=== PATIENT | female | born 1960 | race Caucasian/White ===

== ENCOUNTER 2019-05-24 13:24 | Emergency (ER) | payer OTHER ==
[2019-05-24 14:02] VITALS: BMI 28.8
[2019-05-24 14:50] VITALS: PULSE 87; TEMP 98.2
[2019-05-24 15:20] VITALS: BP 185/85
[2019-05-24] MEDS ORDERED: METOCLOPRAMIDE HCL 10 MG TABLET (FP) PO ONE ×2 (15:27→15:47)
[2019-05-24] MEDS ORDERED: ACETAMINOPHEN 325 MG TABLET (FP) PO ONE (15:27)
[2019-05-24] MEDS ORDERED: ACETAMINOPHEN 325 MG TABLET (FP) ONE (15:47)
--- NOTE | 2019-05-24 15:55 | PDOC ---
History of Present Illness - General Chief Complaint: Blood Pressure Problem Stated Complaint: FALL Time Seen by Provider: 05/24/19 15:27 History Source: Patient Exam Limitations: No Limitations - History of Present Illness Initial Comments: 05/24/19 15:30 Patient is 59F with history of DM, HTN here today complaining of a headache. Patient states that she tripped over a wire yesterday, falling backwards and hit her head on a wall. Denies LOC. Takes aspirin at home. Patient states that her head hurts on the left side and is described as a burning. Denies neck pain, chest pain, back pain, abdominal pain, pelvic pain, leg pain. Denies fevers, chills, nausea, vomiting. Patient has been taking blood pressure multiple times at home. 150s-160s at home worse with pain. Endorses compliance with blood pressure medications at home. Past History - Past Medical History Allergies/Adverse Reactions: Allergies Allergy/AdvReac Type Severity Reaction Status Date / Time No Known Allergies Allergy Verified 05/24/19 13:56 Home Medications: Ambulatory Orders Dapagliflozin Propanediol [Farxiga] 10 mg PO DAILY 03/08/16 Metoprolol Succinate [Toprol XL -] 25 mg PO DAILY 03/08/16 Omeprazole 40 mg PO DAILY 03/08/16 Telmisartan/Hydrochlorothiazid [Micardis Hct 80-12.5 mg Tablet] 1 each PO DAILY 03/08/16 Aspirin 81 mg PO DAILY 05/24/19 Linagliptin [Tradjenta] 5 mg PO DAILY 05/24/19 Rosuvastatin [Crestor -] 5 mg PO HS 05/24/19 Asthma: No Cancer: No CVA: No COPD: No Diabetes: Yes (type 2) GI Disorders: Yes (GERD) HTN: Yes Seizures: Yes (none since 6 years old) - Psycho Social/Smoking Cessation Hx Smoking History: Unknown if ever smoked Hx Alcohol Use: No Drug/Substance Use Hx: No Review of Systems - Review of Systems Able to Perform ROS?: Yes Comments:: 05/24/19 15:55 GENERAL/CONSTITUTIONAL: No fever or chills. No weakness. HEAD, EYES, EARS, NOSE AND THROAT: No change in vision. No ear pain or discharge. No sore throat. CARDIOVASCULAR: No chest pain or shortness of breath RESPIRATORY: No cough, wheezing, or hemoptysis. GASTROINTESTINAL: No nausea, vomiting, diarrhea or constipation. GENITOURINARY: No dysuria, frequency, or change in urination. MUSCULOSKELETAL: No joint or muscle swelling or pain. No neck or back pain. SKIN: No rash NEUROLOGIC: +headache, no vertigo, loss of consciousness, or change in strength/sensation. ENDOCRINE: No increased thirst. No abnormal weight change HEMATOLOGIC/LYMPHATIC: No anemia, easy bleeding, or history of blood clots. ALLERGIC/IMMUNOLOGIC: No hives or skin allergy. *Physical Exam - Vital Signs Last Vital Signs Temp Pulse Resp BP Pulse Ox 98.2 F 87 18 185/85 H 97 05/24/19 14:45 05/24/19 14:45 05/24/19 14:45 05/24/19 15:00 05/24/19 14:45 - Physical Exam 05/24/19 15:55 GENERAL: Awake, alert, and fully oriented, in no acute distress HEAD: No signs of trauma, normocephalic, atraumatic EYES: PERRLA, EOMI, sclera anicteric, conjunctiva clear ENT: Auricles normal inspection, hearing grossly normal, nares patent, oropharynx clear without exudates. Moist mucosa NECK: Normal ROM, supple, no lymphadenopathy, JVD, or masses LUNGS: No distress, speaks full sentences, clear to auscultation bilaterally HEART: Regular rate and rhythm, normal S1 and S2, no murmurs, rubs or gallops, peripheral pulses normal and equal bilaterally. ABDOMEN: Soft, nontender, normoactive bowel sounds. No guarding, no rebound. No masses EXTREMITIES: Normal inspection, Normal range of motion, no edema. No clubbing or cyanosis. NEUROLOGICAL: Cranial nerves II through XII grossly intact. Normal speech, normal gait, no focal sensorimotor deficits, normal romberg SKIN: Warm, Dry, normal turgor, no rashes or lesions noted. ED Treatment Course - RADIOLOGY Radiology Studies Ordered: Category Date Time Status HEAD CT WITHOUT CONTRAST [CT] Stat CT Scan 05/24/19 15:28 Ordered Medical Decision Making - Medical Decision Making 05/24/19 15:56 Patient is 59F with history of HTN and DM here today with headache s/p fall. BP elevated, likely related to pain. Will evaluate with CT and treat for pain. Asp irin use means patient doesn't clinically clear. NEXUS clears neck. No signs of other trauma. Will treat headache with tylenol and reglan. Likely discharge. 05/24/19 16:45 BP down to systolic in 150s. Headache slightly improved. Will give motrin, discharge. Return precautions given. 05/24/19 16:49 EKG shows NSR with rate of 79. No st elevations/depressions. Normal axis. Normal intervals. No significant t wave abnormalities. Discharge - Discharge Information Problems reviewed: Yes Clinical Impression/Diagnosis: Closed head injury Condition: Good Disposition: HOME - Admission No - Follow up/Referral Referrals: Mateo Sol MD [Primary Care Provider] - - Patient Discharge Instructions Patient Printed Discharge Instructions: DI for Closed Head Injury Additional Instructions: Please take tylenol and motrin for pain as needed. Please return if you have any new, worsening or concerning symptoms, especially increasing headache, arm/leg weakness or increased confusion. - Post Discharge Activity
--- NOTE | 2019-05-24 16:08 | PDOC ---
Documentation entered by Anca Rose SCRIBE, acting as scribe for Rafi Alcantara MD. Rafi Alcantara MD: This documentation has been prepared by the Milton talavera Xhesika, SCRIBE, under my direction and personally reviewed by me in its entirety. I confirm that the documentation accurately reflects all work, treatment, procedures, and medical decision making performed by me. Attending Attestation - Resident Resident Name: Santiago Bar - ED Attending Attestation I have performed the following: I have examined & evaluated the patient, The case was reviewed & discussed with the resident, I agree w/resident's findings & plan, Exceptions are as noted - HPI HPI: 05/24/19 15:58 The patient is a 59 year old female with a significant PMH of DM and HTN who presents to the emergency department for L sided headache. Pt reports she tripped over a wire yesterday and fell, causing her to hit her head. The patient denies LOC. Patient notes she is on aspirin. The patient denies chest pain, shortness of breath, fever, chills, cough, nausea, vomiting, diarrhea and constipation. Allergies: NKDA - Physicial Exam PE: 05/24/19 16:06 Awake and alert, well-nourished, in no significant distress Normocephalic and atraumatic PERRLA, EOMI pelvis stable CTA RRR Pelvis stable No extremity deformity Gait stable - Medical Decision Making 05/24/19 16:07 59-year-old female with history of hypertension, on aspirin presents with closed head injury status post mechanical fall. Will obtain CT of head to rule out intracranial pathology. Blood pressure likely pain related. Will administer acetaminophen and Reglan. Likely discharge if no intracranial pathology identified
[2019-05-24] MEDS ORDERED: IBUPROFEN 600 MG TABLET (FP) PO ONE ×2 (16:50→16:55)
--- NOTE | 2019-05-25 10:28 | EKG ---
Test Reason : Blood Pressure : / mmHG Vent. Rate : 079 BPM Atrial Rate : 079 BPM P-R Int : 168 ms QRS Dur : 070 ms QT Int : 376 ms P-R-T Axes : 071 030 040 degrees QTc Int : 431 ms NORMAL SINUS RHYTHM POSSIBLE LEFT ATRIAL ENLARGEMENT BORDERLINE ECG WHEN COMPARED WITH ECG OF 04-JUN-2003 10:42, NONSPECIFIC T WAVE ABNORMALITY HAS REPLACED INVERTED T WAVES IN INFERIOR LEADS Confirmed by SONY DAMON, DOMINIC ([id number]) on 05/25/2019 10:27:46 AM Referred By: Confirmed By:DOMINIC CARDOZA MD
== END 2019-05-24 17:00 | disposition home or self-care (01) ==
LOC: JER 13:24
DX: S09.90XA Unspecified injury of head, initial encounter (principal); E11.9 Type 2 diabetes mellitus without complications; I10 Essential (primary) hypertension; R56.9 Unspecified convulsions
CPT/HCPCS: 70450-TC; 93005; 93010; 99284-25

== ENCOUNTER 2020-04-04 15:45 | Inpatient (IN) | payer OTHER ==
[2020-04-04 16:10] VITALS: TEMP 98.2; BMI 29.9
[2020-04-04] MEDS ORDERED: METOCLOPRAMIDE HCL INJECTION 10 MG/2 ML VIAL IVPUSH ONE (17:23)
[2020-04-04] MEDS ORDERED: ACETAMINOPHEN 500 MG TABLET (FP) PO ONE (17:23)
[2020-04-04] MEDS ORDERED: ACETAMINOPHEN 500 MG TABLET (FP) ONE (17:30)
[2020-04-04] MEDS ORDERED: METOCLOPRAMIDE HCL INJECTION 10 MG/2 ML VIAL ONE (17:30)
[2020-04-04 18:33] LABS: EOS % 0.1 % (0-4.5); HEMATOCRIT 29.7 % (32.4-45.2); HEMOGLOBIN 9.8 GM/dL (10.7-15.3); LYMPH % 5.8 % (8-40); MCH 29.1 pg (25.7-33.7); MCHC 32.9 g/dl (32.0-36.0); MEAN CELL VOLUME 88.4 fl (80-96); MONO % 1.1 % (3.8-10.2); RBC 3.36 M/mm3 (3.60-5.2); RDW 17.3 % (11.6-15.6)
[2020-04-04 18:46] LABS: PLATELET COUNT 35 K/MM3 (134-434)
[2020-04-04 18:48] LABS: POTASSIUM 3.8 mmol/L (3.5-5.1)
[2020-04-04 18:50] LABS: INR 1.14 (0.83-1.09); PROTHROMBIN TIME (PATIENT) 13.7 SEC (9.7-13.0)
[2020-04-04 18:53] LABS: ACTIVATED PTT 28.4 SECONDS (25.2-36.5)
[2020-04-04 18:54] LABS: BLOOD UREA NITROGEN 15.8 mg/dL (7-18); CALCIUM 9.5 mg/dL (8.5-10.1)
[2020-04-04 18:57] LABS: CREATININE 0.9 mg/dL (0.55-1.3)
[2020-04-04 18:58] LABS: BILIRUBIN,TOTAL 0.4 mg/dL (0.2-1); TOT PROT 7.9 g/dl (6.4-8.2)
[2020-04-04 20:55] LABS: URIC ACID 7.8 mg/dL (2.6-7.2)
[2020-04-04 20:56] LABS: PHOSPHOROUS 4.3 mg/dL (2.5-4.9)
[2020-04-04] MEDS ORDERED: ALLOPURINOL 300 MG TABLET (FP) PO ONE (21:17)
[2020-04-04 21:25] VITALS: BP 127/89; PULSE 103
[2020-04-04] MEDS ORDERED: SODIUM CHLORIDE 1,000 ML IV SCH (21:30)
[2020-04-05 00:28] LABS: RETICULOCYTES 0.23 % (0.5-1.5)
[2020-04-05] MEDS ORDERED: ALLOPURINOL 300 MG TABLET (FP) PO SCH (10:00)
[2020-04-05 10:52] LABS: ANISOCYTOSIS 1+; MACROCYTOSIS 0; PLATELET ESTIMATE DECREASED; TEAR DROP CELLS 1+
[2020-04-05 13:37] LABS: WHITE BLOOD COUNT 82.9 K/mm3 (4.0-10.0)
== END 2020-04-05 03:15 | disposition short-term general hospital (02) | DRG 403 ==
LOC: JER 15:45 → JERBED 20:14
PROVIDERS: ADMIT Hospitalist; ATTEND Hospitalist
DX: C95.90 Leukemia, unspecified not having achieved remission (principal); D69.6 Thrombocytopenia, unspecified; D72.829 Elevated white blood cell count, unspecified; I10 Essential (primary) hypertension; E78.5 Hyperlipidemia, unspecified; E11.9 Type 2 diabetes mellitus without complications; K21.9 Gastro-esophageal reflux disease without esophagitis
CPT/HCPCS: 36415; 70450-TC; 71045-TC-FY; 76700-TC; 80053; 83010; 83615; 84100; 84550; 85025; 85045; 85384; 85610; 85730; 93005; 93010; 93971-TC; 99285-25; C9803; U0003